=== PATIENT | male | born 1985 | race Caucasian/White ===

== ENCOUNTER 2023-04-01 11:47 | Emergency (ER) | payer OTHER ==
[2023-04-01 11:55] VITALS: BP 145/88; PULSE 79; RESP 20; TEMP 98; BMI 26.3
[2023-04-01] MEDS ORDERED: DIPHTH,PERTUSS(ACELL),TET 0.5 ML DISP.SYRIN IM ONE ×2 (13:04→13:07)
== END 2023-04-01 13:38 | disposition home or self-care (01) ==
LOC: JERFT 11:47
PROC: 3E0234Z Introduction of Serum, Toxoid and Vaccine into Muscle, Percutaneous Approach (ICD-10-PCS; principal; 2023-04-01)
DX: S61.211A Laceration without foreign body of left index finger without damage to nail, initial encounter (principal); W26.0XXA Contact with knife, initial encounter; Y99.0 Civilian activity done for income or pay
CPT/HCPCS: 90715; 99282-25